=== PATIENT | male | born 1975 | race Caucasian/White ===

== ENCOUNTER → 2019-09-09 | Outpatient (CLI) | payer OTHER ==
--- NOTE | 2019-09-10 07:37 | US ---
EXAMINATION TYPE: US thyroid st tissue head/neck DATE OF EXAM: 09/09/2019 COMPARISON: NONE CLINICAL HISTORY: R22.1 Localized swelling, mass and lump, neck. Patient states having left neck swel ling. Patient states he has been on 3 different antibiotics but has gone down. TECHNIQUE: Targeted grayscale and color ultrasound were performed of the left neck with Limited right neck images taken for comparison. Area of concern at left neck scanned. Multiple lymph nodes seen. Largest measured. 1: 2.3 x 1.0 x 0.9 cm 2: 2.3 x 1.3 x 1.2 cm The lymph nodes of the left neck that are imaged display cortical thickening up to 9 mm. Contralateral images taken. No adenopathy is seen within the right neck. IMPRESSION: Abnormal left neck adenopathy with lymph nodes displaying cortical thickening and enlarg ed. Adenopathy may be reactive or neoplastic. In the setting of recent infection repeat ultrasound co uld be performed in 4-6 weeks to ensure decreasing size of the lymph nodes. However if there is no cl inical recent infection ultrasound guided biopsy would be recommended for the abnormal adenopathy wit h flow cytometry to exclude lymphoma.
== END | disposition home or self-care (01) ==
LOC: RADUSWWP 16:45
PROVIDERS: ATTEND Family Medicine
DX: R59.0 Localized enlarged lymph nodes (principal)
CPT/HCPCS: 76536

== ENCOUNTER 2022-01-18 19:36 | Emergency (ER) | payer OTHER ==
[2022-01-18 20:47] VITALS: RESP 16; TEMP 98.6
[2022-01-18] MEDS ORDERED: HYDROmorphone 1 MG/ML 1 ML SYRINGE IVP STA (21:10)
[2022-01-18] MEDS ORDERED: SODIUM CHLORIDE 0.9% 1,000 ML IV STA (21:10)
[2022-01-18] MEDS ORDERED: ONDANSETRON 4 MG/2 ML VIAL IVP STA (21:10)
--- NOTE | 2022-01-18 21:14 | ED ---
General Adult HPI - General Chief complaint: Urogenital Stated complaint: Kidney Stone Time Seen by Provider: 01/18/22 20:57 Source: patient, RN notes reviewed Mode of arrival: ambulatory Limitations: no limitations - History of Present Illness Initial comments: 46-year-old male presents to the emergency department for evaluation of left flank pain. Patient states he was diagnosed with a kidney stone earlier today at [facility] in [place]. States he was unable to be admitted there due to a lack of urology services therefore was transferred to [facility] but waited in the ED waiting room for several hours before leaving. [facility] he is here for pain control and hoping to be admitted at this facility. States he was given an antibiotic prior to departure for UTI. Denies fever, chills, chest pain, shortness of breath, appetite changes, diarrhea, constipation, or lower extremity edema. - Related Data Home Medications Medication Instructions Recorded Confirmed Buprenorphine/Naloxone 8Mg/2Mg 2 film SL DAILY 01/18/22 01/18/22 [Suboxone 8-2Mg Film] Ferrous Sulfate [Feosol] 325 mg PO DAILY 01/18/22 01/18/22 Previous Rx's Medication Instructions Recorded Ciprofloxacin HCl [Cipro] 500 mg PO Q12HR #20 tablet 01/19/22 Ketorolac [Toradol] 10 mg PO Q8HR #15 tab 01/19/22 Ondansetron Odt [Zofran Odt] 4 mg PO Q8HR PRN #10 tab 01/19/22 Tamsulosin [Flomax] 0.4 mg PO DAILY #7 cap 01/19/22 Allergies Allergy/AdvReac Type Severity Reaction Status Date / Time Beef Containing Products Allergy Unknown Verified 01/18/22 22:26 [Beef] Review of Systems ROS Statement: Those systems with pertinent positive or pertinent negative responses have been documented in the HPI. ROS Other: All systems not noted in ROS Statement are negative. Past Medical History Additional Past Medical History / Comment(s): kindey stones. Chrons Dx. History of Any Multi-Drug Resistant Organisms: None Reported Past Surgical History: Appendectomy Additional Past Surgical History / Comment(s): lithotripsy. Kidney stent. 2 feet of intestine removed Past Psychological History: No Psychological Hx Reported Smoking Status: Current some day smoker Past Alcohol Use History: Occasional Past Drug Use History: Marijuana General Exam Limitations: no limitations (Well-developed, well-nourished male in moderate distress. Initial temperature 98.6, pulse 90, respirations 16, blood pressure 123/71, pulse ox 98% on room air.) General appearance: alert, other Eye exam: Present: normal appearance. Absent: scleral icterus, conjunctival injection, periorbital swelling, periorbital tenderness ENT exam: Present: normal exam, normal oropharynx, mucous membranes moist Respiratory exam: Present: normal lung sounds bilaterally. Absent: respiratory distress, wheezes, rales, rhonchi, stridor, chest wall tenderness Cardiovascular Exam: Present: regular rate, normal rhythm, normal heart sounds. Absent: systolic murmur, diastolic murmur, rubs, gallop, clicks GI/Abdominal exam: Present: soft, normal bowel sounds. Absent: distended, tenderness, guarding, rebound, rigid exam: Present: other (Urine is very dark yellow in appearance; able to empty bladder without difficulty.) Extremities exam: Present: normal inspection Back exam: Present: CVA tenderness (L). Absent: CVA tenderness (R) Neurological exam: Present: alert, oriented X3, CN II-XII intact, normal gait Psychiatric exam: Present: normal affect, normal mood Skin exam: Present: warm, dry, intact, normal color. Absent: rash Course Vital Signs 01/18/22 01/18/22 01/19/22 20:41 23:20 01:43 Temperature 98.6 F Pulse Rate 90 78 74 Respiratory 16 16 16 Rate Blood Pressure 123/71 123/78 107/75 O2 Sat by Pulse 98 98 98 Oximetry - Reevaluation(s) Reevaluation #1: 01/18/22 22:41 [address] records from [facility]. 01/19/22 01:40 Upon reassessment, patient is resting more comfortably than on upon initial presentation, however does complain of return of left-sided pain and is requesting an additional dose of pain medication. Records from [facility] were obtained and reviewed. Medical Decision Making - Medical Decision Making This is a 46-year-old male with a past medical history of kidney stones and colitis who presents to the emergency department for evaluation of left lower abdominal pain due to known renal calculus as diagnosed at previous facility. Upon exam, patient is restless but in no acute distress. He does have mild left flank/CVA tenderness upon palpation. Urine is dark yellow appearance, but no issues with retention. Vital signs are stable. Report was reviewed from [facility] showing presence of 7 x 5 mm elongated stone within the proximal left ureter just beyond the UPJ contributing to mild to moderate obstructive uropathy. He also had a nitrite positive UTI for which he was given Rocephin. Urinalysis here shows large amount of blood, urine RBCs, and a few urine WBCs. Patient was given Dilaudid for pain control and was significantly improved. Patient would prefer hospital admission for ongoing IV pain medication however he has resting comfortably, able to urinate, and tolerating oral intake without difficulty therefore he will be discharged home to follow up with urology on an outpatient basis. Patient is prescribed Cipro for UTI, Flomax, Toradol, and Zofran. Return parameters were discussed in detail. Patient verbalizes understanding and agrees with this plan. Attending: Janine. - Lab Data Result diagrams: 01/18/22 21:40 01/18/22 21:40 Lab Results 01/18/22 01/18/22 01/18/22 Range/Units 21:40 21:40 21:40 WBC 8.7 (3.8-10.6) k/uL RBC 4.69 (4.30-5.90) m/uL Hgb 12.3 L (13.0-17.5) gm/dL Hct 40.1 (39.0-53.0) % MCV 85.3 (80.0-100.0) fL MCH 26.3 (25.0-35.0) pg MCHC 30.8 L (31.0-37.0) g/dL RDW 13.4 (11.5-15.5) % Plt Count 261 (150-450) k/uL MPV 7.7 Neutrophils % 59 % Lymphocytes % 30 % Monocytes % 6 % Eosinophils % 3 % Basophils % 1 % Neutrophils # 5.1 (1.3-7.7) k/uL Lymphocytes # 2.7 (1.0-4.8) k/uL Monocytes # 0.5 (0-1.0) k/uL Eosinophils # 0.2 (0-0.7) k/uL Basophils # 0.1 (0-0.2) k/uL Sodium 139 (137-145) mmol/L Potassium 3.7 (3.5-5.1) mmol/L Chloride 107 (98-107) mmol/L Carbon Dioxide 25 (22-30) mmol/L Anion Gap 7 mmol/L BUN 17 (9-20) mg/dL Creatinine 1.02 (0.66-1.25) mg/dL Est GFR (CKD-EPI)AfAm >90 (>60 ml/min/1.73 sqM) Est GFR (CKD-EPI)NonAf 89 (>60 ml/min/1.73 sqM) Glucose 118 H (74-99) mg/dL Calcium 8.8 (8.4-10.2) mg/dL Total Bilirubin 0.4 (0.2-1.3) mg/dL AST 19 (17-59) U/L ALT 11 (4-49) U/L Alkaline Phosphatase 34 L (38-126) U/L Total Protein 6.4 (6.3-8.2) g/dL Albumin 3.8 (3.5-5.0) g/dL Urine Color Yellow Urine Appearance Cloudy (Clear) Urine pH 5.5 (5.0-8.0) Ur Specific Kendall 1.024 (1.001-1.035) Urine Protein 1+ H (Negative) Urine Glucose (UA) Negative (Negative) Urine Ketones Negative (Negative) Urine Blood Large H (Negative) Urine Nitrite Negative (Negative) Urine Bilirubin Negative (Negative) Urine Urobilinogen <2.0 (<2.0) mg/dL Ur Leukocyte Esterase Small H (Negative) Urine RBC 142 H (0-5) /hpf Urine WBC 17 H (0-5) /hpf Ur Squamous Epith Cells <1 (0-4) /hpf Urine Mucus Few H (None) /hpf Disposition Clinical Impression: Renal calculus, UTI (urinary tract infection) Disposition: HOME SELF-CARE Condition: Stable Instructions (If sedation given, give patient instructions): Kidney Stones (ED) Additional Instructions: Take Toradol if needed for pain. Zofran is for nausea. A 7-day course of Flomax is being prescribed as discussed. Cipro is to treat your urinary tract infection. Please call the urologist the morning to schedule a follow-up appointment. Return to the emergency department with any new, worsening, or concerning symptoms. Prescriptions: Ciprofloxacin HCl [Cipro] 500 mg PO Q12HR #20 tablet Tamsulosin [Flomax] 0.4 mg PO DAILY #7 cap Ketorolac [Toradol] 10 mg PO Q8HR #15 tab Ondansetron Odt [Zofran Odt] 4 mg PO Q8HR PRN #10 tab PRN Reason: Nausea Is patient prescribed a controlled substance at d/c from ED?: No Referrals: Yeny Pulliam MD [Primary Care Provider] - 1-2 days Dax Blackwell MD [STAFF PHYSICIAN] - 1-2 days Time of Disposition: 02:58
[2022-01-18 22:02] LABS: Basophils # (A) 0.1 k/uL (0-0.2); Basophils % (A) 1 %; Eosinophils # (A) 0.2 k/uL (0-0.7); Eosinophils % (A) 3 %; HCT 40.1 % (39.0-53.0); HGB 12.3 gm/dL (13.0-17.5); Lymphocytes # (A) 2.7 k/uL (1.0-4.8); Lymphocytes % (A) 30 %; MCH 26.3 pg (25.0-35.0); MCHC 30.8 g/dL (31.0-37.0); MCV 85.3 fL (80.0-100.0); Mean Platelet Volume 7.7; Monocytes # (A) 0.5 k/uL (0-1.0); Monocytes % (A) 6 %; Neutrophils # (A) 5.1 k/uL (1.3-7.7); Neutrophils % (A) 59 %; Platelet Count 261 k/uL (150-450); RBC 4.69 m/uL (4.30-5.90); RDW 13.4 % (11.5-15.5); WBC 8.7 k/uL (3.8-10.6)
[2022-01-18 22:10] LABS: Appearance,Urine Cloudy (Clear); Bilirubin,Urine Negative (Negative); Blood,Urine Large (Negative); Color,Urine Yellow; Glucose,Urine (UA) Negative (Negative); Ketones,Urine Negative (Negative); Leukocyte Esterase,Urine Small (Negative); Mucus,Urine Few /hpf; Nitrite,Urine Negative (Negative); PH, Urine 5.5 (5.0-8.0); Protein,Urine 1+ (Negative); RBC,Urine 142 /hpf (0-5); Specific Gravity,Urine 1.024 (1.001-1.035); Squamous Epithelial Cell,Urine <1 /hpf (0-4); Urobilinogen,Urine <2.0 mg/dL (<2.0); WBC,Urine 17 /hpf (0-5)
[2022-01-18 22:31] LABS: ALT 11 U/L (4-49); AST 19 U/L (17-59); African American GFR (CKD) >90 (>60 ml/min/1.73 sqM); Albumin 3.8 g/dL (3.5-5.0); Alkaline Phosphatase 34 U/L (38-126); Anion Gap 7 mmol/L; Blood Urea Nitrogen 17 mg/dL (9-20); Calcium 8.8 mg/dL (8.4-10.2); Carbon Dioxide 25 mmol/L (22-30); Chloride 107 mmol/L (98-107); Glucose 118 mg/dL (74-99); Non-African American GFR(CKD) 89 (>60 ml/min/1.73 sqM); Potassium 3.7 mmol/L (3.5-5.1); Sodium 139 mmol/L (137-145); Total Bilirubin 0.4 mg/dL (0.2-1.3); Total Protein 6.4 g/dL (6.3-8.2)
[2022-01-19] MEDS ORDERED: HYDROmorphone 0.5 MG/0.5 ML SYRINGE IVP STA (01:40)
[2022-01-19 01:44] VITALS: BP 107/75; PULSE 74
[2022-01-19] MEDS ORDERED: ACET/COD 300 MG/30 MG STARTER PACK 6 TAB BTL PO STA (02:52)
[2022-01-19] MEDS ORDERED: ONDANSETRON 4 MG ODT STARTER PACK 2 TAB BTL PO STA (02:52)
== END 2022-01-19 03:11 | disposition home or self-care (01) ==
LOC: EC 19:36
DX: N20.0 Calculus of kidney (principal); N39.0 Urinary tract infection, site not specified; F17.200 Nicotine dependence, unspecified, uncomplicated; F12.90 Cannabis use, unspecified, uncomplicated; Z79.899 Other long term (current) drug therapy
CPT/HCPCS: 36415; 80053; 85025; 81001; 87086; 99284; 96374; 96375; 96376; 96361; J2405; J1170 ×2; S0119

== ENCOUNTER → 2022-01-20 | Outpatient (CLI) | payer OTHER ==
--- NOTE | 2022-01-20 11:17 | XR ---
EXAMINATION TYPE: XR KUB DATE OF EXAM: 01/20/2022 COMPARISON: NONE HISTORY: Pain TECHNIQUE: One view abdominal series FINDINGS: The osseous structures are intact. The bowel gas pattern is nonspecific. 5 mm right renal calculus n oted. Calcifications in left hemipelvis likely vascular nonspecific. Bone island overlying the femora l head. Arthropathy of the hips. Surgical changes right lower quadrant.. IMPRESSION: 1. Right lower pole renal calculus..
== END | disposition home or self-care (01) ==
LOC: RADXRMAIN 10:05
PROVIDERS: ATTEND Urology
DX: N20.0 Calculus of kidney (principal)
CPT/HCPCS: 74018

== ENCOUNTER 2022-01-26 13:19 | Day surgery (SDC) | payer OTHER ==
[2022-01-24 18:45] VITALS: BMI 25.0
[~2022-01-26 13:19] MED LIST: DEXAMETHASONE SOD PHOSPHATE 4 MG/ML 1 ML VIAL IV ONE; HYDROmorphone 0.5 MG/0.5 ML SYRINGE IVP PRN; LACTATED RINGERS 1,000 ML IV SCH; ONDANSETRON 4 MG/2 ML VIAL IVP ONE
--- NOTE | 2022-01-26 13:59 | XR ---
KUB HISTORY: Bilateral ureteral stones, preop Frontal KUB submitted and correlated prior KUB 01/20/2022 Overlying bowel gas may obscure detail. Calcifications superimposed over the lower pole the right kid robe are partially obscured but thought to be stable. Calcifications in the left hemipelvis are unchan ged and may represent phleboliths. Postop changes are noted to the bowel in the right hemiabdomen. Doroteo jia are intact and stable. IMPRESSION: Stable findings. Right-sided nephrolithiasis. Postop changes.
[2022-01-26] MEDS ORDERED: SUCCINYLCHOLINE CHLORIDE 100 MG/5 ML SYR IV ONE (16:16)
[2022-01-26] MEDS ORDERED: HYDROmorphone (PF) 1 MG/ML ONE (16:16)
[2022-01-26] MEDS ORDERED: MIDAZOLAM 2 MG/2 ML VIAL ONE (16:16)
[2022-01-26] MEDS ORDERED: LIDOCAINE 2% INJ 20 MG/ML (2 ML VIAL) ONE (16:16)
[2022-01-26] MEDS ORDERED: fentaNYL (PF) 50 MCG/ML 2 ML AMP ONE (16:16)
[2022-01-26] MEDS ORDERED: IOPAMIDOL-370 50ML BTL IRRIGATION ONE (16:42)
--- NOTE | 2022-01-26 17:48 | P.HPIHPCON ---
History of Present Illness H&P Date: 01/26/22 Chief Complaint: Left ureteral, right renal stone This is a 46-year-old male with history of a 7 mm left-sided proximal stone, and a 1.2 cm right-sided lower pole stone. He is symptomatic secondary to her stone. Discussed the option of ESWL versus ureteroscopy. Discussed the risk and the benefit of each approach. He agreed to proceed with bilateral ureteroscopy with holmium laser. Discussed the risk which includes but not limited to bleeding, infection, injury to the ureter. Discussed also risk from anesthesia. Him to chew all the risk and agreed to proceed Consent for Procedure: I have explained the operation/procedure to the patient, including the risks, benefits, side effects, alternative therapies (including not receiving the proposed treatment or service), the likelihood of the patient achieving his/her goals, and potential recuperation problems for the procedure/sedation/analgesia, as well as any blood products, if indicated. I also explained to the patient the risks, benefits and side effects of the alternatives, as well as the risks related to not receiving the proposed procedure, care, treatment, or services. Past Medical History Past Medical History: Asthma Additional Past Medical History / Comment(s): Asthma as a child. Crohns. Hx kindey stones. History of Any Multi-Drug Resistant Organisms: None Reported Past Surgical History: Appendectomy, Bowel Resection Additional Past Surgical History / Comment(s): lithotripsy. Kidney stent. 2 feet of intestine removed Past Anesthesia/Blood Transfusion Reactions: No Reported Reaction Smoking Status: Current some day smoker - Past Family History Father Family Medical History: Cancer Additional Family Medical History / Comment(s): lung cancer Medications and Allergies Home Medications Medication Instructions Recorded Confirmed Type Buprenorphine/Naloxone 8Mg/2Mg 1 film SL BID 01/18/22 01/26/22 History [Suboxone 8-2Mg Film] Ferrous Sulfate [Feosol] 325 mg PO DAILY 01/18/22 01/26/22 History Ciprofloxacin HCl [Cipro] 500 mg PO Q12HR #20 tablet 01/19/22 01/26/22 Rx Ketorolac [Toradol] 10 mg PO Q8HR #15 tab 01/19/22 01/26/22 Rx Ondansetron Odt [Zofran Odt] 4 mg PO Q8HR PRN #10 tab 01/19/22 01/26/22 Rx Tamsulosin [Flomax] 0.4 mg PO DAILY #7 cap 01/19/22 01/26/22 Rx Loperamide [Imodium] 2 mg PO QID PRN 01/24/22 01/26/22 History Allergies Allergy/AdvReac Type Severity Reaction Status Date / Time Beef Containing Products Allergy bowel Verified 01/26/22 14:13 [Beef] obstruction soy AdvReac inflammation, Verified 01/26/22 14:13 gas, diarrhea Surgical - Exam Vital Signs Temp Pulse Resp BP Pulse Ox 97.7 F 69 18 119/71 98 01/26/22 13:57 01/26/22 13:57 01/26/22 13:57 01/26/22 13:57 01/26/22 13:57 - General no distress, moderate pain - ENT normal nares, normal mucosa - Respiratory normal expansion, normal respiratory effort - Abdomen Abdomen: soft, non tender Assessment and Plan Assessment: OR for bilateral ureteroscopy, with holmium laser lithotripsy, stone basketing and stent insertion
[2022-01-26 17:51] VITALS: TEMP 97.9
--- NOTE | 2022-01-26 17:56 | P.OP ---
Date of Procedure: 01/26/22 Preoperative Diagnosis: Left ureteral stone, right renal stone Postoperative Diagnosis: Same Procedure(s) Performed: Cystoscopy, bilateral ureteroscopy, holmium laser lithotripsy, stone basketing, and right stent insertion, left retrograde pyelogram Implants: 6-Czech by 26 cm stent left on a string and taped to the patient penis in the right ureter Anesthesia: JANINE Surgeon: Virgil Whitley Estimated Blood Loss (ml): 5 Pathology: other (Bilateral kidney stones) Condition: stable Disposition: PACU Indications for Procedure: this is a 60-year-old female with history of a 1 cm left-sided distal ureteral stone, she is symptomatic from her stone. Discussed with her the option of ureteroscopy versus ESWL. She agreed to proceed with a left-sided ureteroscopy with holmium laser. Discussed the risk which includes but not limited to bleeding, infection, injury to the ureter. Discussed also risk from anesthesia. She understood all the risk and agreed to proceed Operative Findings: Large left-sided proximal ureteral stone, right-sided lower pole stone Description of Procedure: Patient brought to the operating room, general anesthesia was induced. He was prepped and draped in sterile fashion and placed in dorsal lithotomy position. Cystoscopy fitted with a 21-Czech sheath was inserted per urethra, cystoscopy was performed which showed no abnormality within the bladder. Attention was t hen carried to the left ureteral orifice which was intubated with an open-ended catheter, retrograde pyelogram was performed on the left side which showed no filling defect along the course of the ureter, there was a filling defect at the UPJ consistent at the level of the stone. At this time a sensor wire was advanced through the catheter and the catheter was removed with the wire in place. Next under fluoroscopy 1113 Czech access sheath was passed over the wire into the proximal ureter. Next a flexible ureteroscope was inserted through the access sheath, renoscopy was performed which showed a large stone within the renal pelvis. Using the holmium laser the stone was dusted, sizable fragments were removed using the stone basket. Repeat renoscopy showed no sizable fragments or injury to the kidney. Pullback ureteroscopy was performed which showed no injury to the ureter or any ureteral fragments. There was no ureteral edema, thus stent was not placed. At this time the cystoscope was reinserted and attention was carried to the right ureteral orifice was intubated with a sensor wire. Next a 1113 Czech access sheath was passed over the wire into the proximal ureter, under fluoroscopy. Next the flexible ureteroscope was inserted through the access sheath, renoscopy was performed which showed a large stone in the lower pole. Using the holmium laser the stone was dusted, sizable fragments were removed using the stone basket. Repeat renoscopy showed no sizable fragments or injury to the kidney, there was no radiopaque densities seen on x-ray. At this time pullback ureteroscopy was performed which showed no injury to the ureter or any ureteral fragments. As ureteroscope was withdrawn a sensor wire was advanced through. Next a ureteral stent was passed over the wire, the proximal curl was visualized on fluoroscopy and distal curl was visualized using the cystoscope. The stent was left on a string and taped to the patient penis. The bladder was emptied at the end of the case. Patient tolerated procedure well was taken to recovery in stable condition
[2022-01-26 18:26] VITALS: RESP 16
[2022-01-26 19:00] VITALS: BP 156/98; PULSE 66
--- NOTE | 2022-01-27 09:41 | FL ---
Fluoroscopy HISTORY: Lithotripsy and cystoscopy 36 seconds fluoroscopy time supplied to the referring clinician. 5 intraoperative C-arm images docum ent the procedure. See dictated report from urology.
== END 2022-01-26 19:30 | disposition home or self-care (01) ==
LOC: OR 13:19
PROVIDERS: ATTEND Urology
DX: N20.2 Calculus of kidney with calculus of ureter (principal); K50.90 Crohn's disease, unspecified, without complications; Z87.442 Personal history of urinary calculi; Z90.49 Acquired absence of other specified parts of digestive tract; F17.200 Nicotine dependence, unspecified, uncomplicated; Z80.1 Family history of malignant neoplasm of trachea, bronchus and lung; Z79.891 Long term (current) use of opiate analgesic; Z79.899 Other long term (current) drug therapy; Z91.018 Allergy to other foods
CPT/HCPCS: 52356; 82365; 74420; 74018; C2625; C1758; C1769; J2250; J1100; J0690; J2405; J3010; J1170 ×2; J0330; Q9967; J2001

== ENCOUNTER 2022-11-10 07:57 | Observation (INO) | payer OTHER ==
[2022-11-10] MEDS ORDERED: SODIUM CHLORIDE 0.9% 1,000 ML IV STA (08:06)
[2022-11-10] MEDS ORDERED: DILTIAZEM DRIP BOLUS FROM BAG 1 MG SOLN IV ONE (08:18)
[2022-11-10 08:27] LABS: Basophils % (A) 0 %; Eosinophils # (A) 0.1 k/uL (0-0.7); Eosinophils % (A) 1 %; HCT 48.5 % (39.0-53.0); Lymphocytes # (A) 2.5 k/uL (1.0-4.8); Lymphocytes % (A) 25 %; MCH 28.3 pg (25.0-35.0); MCHC 32.9 g/dL (31.0-37.0); Mean Platelet Volume 7.6; Monocytes # (A) 0.5 k/uL (0-1.0); Monocytes % (A) 5 %; Neutrophils % (A) 68 %; Platelet Count 246 k/uL (150-450); RBC 5.64 m/uL (4.30-5.90); WBC 10.3 k/uL (3.8-10.6)
--- NOTE | 2022-11-10 08:38 | XR ---
EXAMINATION TYPE: XR chest 2V DATE OF EXAM: 11/10/2022 COMPARISON: NONE HISTORY: Dysrhythmia. TECHNIQUE: Frontal and lateral views of the chest are obtained. FINDINGS: There is no focal air space opacity, pleural effusion, or pneumothorax seen. The cardiac silhouette size is within normal limits. The osseous structures are intact. Overlying EKG leads are present. IMPRESSION: No acute cardiopulmonary process.
[2022-11-10 08:40] LABS: ALT 16 U/L (4-49); AST 26 U/L (17-59); African American GFR (CKD) >90 (>60 ml/min/1.73 sqM); Albumin 4.1 g/dL (3.5-5.0); Alkaline Phosphatase 49 U/L (38-126); Anion Gap 12 mmol/L; Blood Urea Nitrogen 15 mg/dL (9-20); Calcium 9.2 mg/dL (8.4-10.2); Carbon Dioxide 22 mmol/L (22-30); Chloride 104 mmol/L (98-107); Glucose 94 mg/dL (74-99); Magnesium 1.7 mg/dL (1.6-2.3); Non-African American GFR(CKD) >90 (>60 ml/min/1.73 sqM); Partial Thromboplastin Time 22.8 sec (22.0-30.0); Potassium 3.5 mmol/L (3.5-5.1); Prothrombin Time 10.6 sec (9.0-12.0); Sodium 138 mmol/L (137-145); Total Bilirubin 1.1 mg/dL (0.2-1.3); Total Protein 6.6 g/dL (6.3-8.2)
[2022-11-10] MEDS: DILTIAZEM 125 MG in SODIUM CHLORIDE 0.9% 100 ML IV SCH (08:53)
--- NOTE | 2022-11-10 08:57 | ED ---
General Adult HPI - General Chief complaint: Anxiety Stated complaint: Anxiety Time Seen by Provider: 11/10/22 08:00 Source: patient, RN notes reviewed Mode of arrival: ambulatory Limitations: no limitations - History of Present Illness Initial comments: 46-year-old male presents emergency Department with chief complaint of palpitations. Patient states he was at work he states his work was harassing him about possibly using marijuana. Patient states he started his work today states he is doing some activities states he became feeling more anxious noted that his heart was racing. Patient states he has no history of cardiac issues he states he does have a history of Crohn's, kidney stones, anxiety. Patient did have some discomfort when he felt like his heart was racing. He denies any fevers chills no cough or cold like symptoms. - Related Data Home Medications Medication Instructions Recorded Confirmed Buprenorphine/Naloxone 8Mg/2Mg 1 film SL BID 01/18/22 09/28/22 [Suboxone 8-2Mg Film] Ferrous Sulfate [Feosol] 325 mg PO DAILY 01/18/22 09/28/22 Loperamide [Imodium] 2 mg PO QID PRN 01/24/22 09/28/22 oxyCODONE-APAP 7.5-325MG [Percocet 0.5 tab PO DIRECTED PRN 09/28/22 09/28/22 7.5-325 mg] Ketorolac [Toradol] 10 mg PO Q6HR 09/29/22 09/29/22 Previous Rx's Medication Instructions Recorded Tamsulosin [Flomax] 0.4 mg PO DAILY #7 cap 01/19/22 Cephalexin [Keflex] 500 mg PO Q6HR 1 Days #4 cap 09/29/22 Ketorolac [Toradol] 10 mg PO Q6HR PRN #10 tab 09/29/22 Tamsulosin [Flomax] 0.4 mg PO DAILY #14 cap 09/29/22 Allergies Allergy/AdvReac Type Severity Reaction Status Date / Time Beef Containing Products Allergy bowel Verified 11/10/22 08:07 [Beef] obstruction soy AdvReac inflammation, Verified 11/10/22 08:07 gas, diarrhea Review of Systems ROS Statement: Those systems with pertinent positive or pertinent negative responses have been documented in the HPI. ROS Other: All systems not noted in ROS Statement are negative. Past Medical History Past Medical History: Asthma Additional Past Medical History / Comment(s): Asthma as a child. Crohns. Hx kidn ey stones.-seen recently @[facility] for History of Any Multi-Drug Resistant Organisms: None Reported Past Surgical History: Appendectomy, Bowel Resection Additional Past Surgical History / Comment(s): lithotripsy. Kidney stent. 2 feet of intestine removed Past Anesthesia/Blood Transfusion Reactions: No Reported Reaction Past Psychological History: Anxiety, Depression Smoking Status: Current some day smoker Past Alcohol Use History: Occasional Past Drug Use History: Cocaine, Marijuana - Past Family History Father Family Medical History: Cancer Additional Family Medical History / Comment(s): lung cancer General Exam Limitations: no limitations General appearance: alert, in no apparent distress Head exam: Present: atraumatic, normocephalic, normal inspection Eye exam: Present: normal appearance, PERRL, EOMI. Absent: scleral icterus, conjunctival injection, periorbital swelling ENT exam: Present: normal exam, normal oropharynx, mucous membranes moist Neck exam: Present: normal inspection, full ROM. Absent: tenderness, meningismus, lymphadenopathy Respiratory exam: Present: normal lung sounds bilaterally. Absent: respiratory distress, wheezes, rales, rhonchi, stridor Cardiovascular Exam: Present: tachycardia, irregular rhythm, normal heart sounds. Absent: normal rhythm, systolic murmur, diastolic murmur, rubs, gallop, clicks GI/Abdominal exam: Present: soft, normal bowel sounds. 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 fib with RVR rate of 145 QRS 94 QT/QTC 301/385 - EKG Results: EKG: interpreted by LALITOD Medical Decision Making - Medical Decision Making Was pt. sent in by a medical professional or institution (, PA, DYE TANK TENDER, urgent care, hospital, or [facility]...) When possible be specific @ -No Did you speak to anyone other than the patient for history (EMS, parent, family, police, friend...)? What history was obtained from this source @ -No Did you review nursing and triage notes (agree or disagree)? Why? @ -I reviewed and agree with nursing and triage notes Were old charts reviewed (outside hosp., previous admission, EMS record, old EKG, old radiological studies, urgent care reports/EKG's, [facility] records)? Report findings @ -No old charts were reviewed Differential Diagnosis (chest pain, altered mental status, abdominal pain women, abdominal pain men, vaginal bleeding, weakness, fever, dyspnea, syncope, headache, dizziness, GI bleed, back pain, seizure, CVA, palpatations, mental health, musculoskeletal)? @ -Differential Palpitations Ventricular arrhythmias, atrial arrhythmias, myocardial infarction, anemia, thyrotoxicosis, electrolyte imbalance, hypokalemia, pulmonary embolism, pulmonary disease, drugs, alcohol, anxiety, stress.... This is not meant to be an all-inclusive list. EKG interpreted by me (3pts min.). @ -As above X-rays interpreted by me (1pt min.). @ -Chest x-ray shows no acute process CT interpreted by me (1pt min.). @ -None done U/S interpreted by me (1pt. min.). @ -None done What testing was considered but not performed or refused? (CT, X-rays, U/S, labs)? Why? @ -None What meds were considered but not given or refused? Why? @ -None Did you discuss the management of the patient with other professionals (professionals i.e. , ROSS, DYE TANK TENDER, lab, RT, psych nurse, social professionals, letterer, teacher, career services officer, lining caser)? Give summary @ -No Was smoking cessation discussed for >3mins.? @ -No Was critical care preformed (if so, how long)? @ -yes 35 minutes Were there social determinants of health that impacted care today? How? (Homelessness, low income, unemployed, alcoholism, drug addiction, transportation, low edu. Level, literacy, decrease access to med. care, fci, rehab)? @ -No Was there de-escalation of care discussed even if they declined (Discuss DNR or withdrawal of care, Hospice)? DNR status @ -No What co-morbidities impacted this encounter? (DM, HTN, Smoking, COPD, CAD, Cancer, CVA, ARF, Chemo, Hep., AIDS, mental health diagnosis, sleep apnea, mo rbid obesity)? @ -Crohn's disease, anxiety Was patient admitted / discharged? Hospital course, mention meds given and route, prescriptions, significant lab abnormalities, going to OR and other pertinent info. @ -Admitted patient has new-onset atrial fibrillation patient presented in A. fib RVR with a heart rate she 140-80. Patient was very symptomatic. Symptoms are improving at this time Cardizem was started. Patiently admitted for ech ocardiogram, cardiology evaluation. Undiagnosed new problem with uncertain prognosis? @ -No Drug Therapy requiring intensive monitoring for toxicity (Heparin, Nitro, Insulin, Cardizem)? @ -Cardizem Were any procedures done? @ -No Diagnosis/symptom? @ -New-onset atrial fibrillation fibrillation Acute, or Chronic, or Acute on Chronic? @ -Acute Uncomplicated (without systemic symptoms) or Complicated (systemic symptoms)? @ -Complicated Side effects of treatment? @ -No Exacerbation, Progression, or Severe Exacerbation? @ -No Poses a threat to life or bodily function? How? (Chest pain, [place], [place], pneumonia, PE, COPD, DKA, ARF, appy, cholecystitis, CVA, Diverticulitis, Homicidal, Suicidal, threat to staff... and all critical care pts) @ -No - Lab Data Result diagrams: 11/10/22 08:08 11/10/22 08:08 Lab Results 11/10/22 11/10/22 11/10/22 Range/Units 08:08 08:08 08:08 WBC 10.3 (3.8-10.6) k/uL RBC 5.64 (4.30-5.90) m/uL Hgb 16.0 (13.0-17.5) gm/dL Hct 48.5 (39.0-53.0) % MCV 86.0 (80.0-100.0) fL MCH 28.3 (25.0-35.0) pg MCHC 32.9 (31.0-37.0) g/dL RDW 13.0 (11.5-15.5) % Plt Count 246 (150-450) k/uL MPV 7.6 Neutrophils % 68 % Lymphocytes % 25 % Monocytes % 5 % Eosinophils % 1 % Basophils % 0 % Neutrophils # 7.0 (1.3-7.7) k/uL Lymphocytes # 2.5 (1.0-4.8) k/uL Monocytes # 0.5 (0-1.0) k/uL Eosinophils # 0.1 (0-0.7) k/uL Basophils # 0.0 (0-0.2) k/uL PT 10.6 (9.0-12.0) sec INR 1.0 (<1.2) APTT 22.8 (22.0-30.0) sec Sodium 138 (137-145) mmol/L Potassium 3.5 (3.5-5.1) mmol/L Chloride 104 (98-107) mmol/L Carbon Dioxide 22 (22-30) mmol/L Anion Gap 12 mmol/L BUN 15 (9-20) mg/dL Creatinine 0.84 (0.66-1.25) mg/dL Est GFR (CKD-EPI)AfAm >90 (>60 ml/min/1.73 sqM) Est GFR (CKD-EPI)NonAf >90 (>60 ml/min/1.73 sqM) Glucose 94 (74-99) mg/dL Calcium 9.2 (8.4-10.2) mg/dL Magnesium 1.7 (1.6-2.3) mg/dL Total Bilirubin 1.1 (0.2-1.3) mg/dL AST 26 (17-59) U/L ALT 16 (4-49) U/L Alkaline Phosphatase 49 (38-126) U/L Troponin I (0.000-0.034) ng/mL Total Protein 6.6 (6.3-8.2) g/dL Albumin 4.1 (3.5-5.0) g/dL TSH 1.050 (0.465-4.680) mIU/L 11/10/22 Range/Units 08:08 WBC (3.8-10.6) k/uL RBC (4.30-5.90) m/uL Hgb (13.0-17.5) gm/dL Hct (39.0-53.0) % MCV (80.0-100.0) fL MCH (25.0-35.0) pg MCHC (31.0-37.0) g/dL RDW (11.5-15.5) % Plt Count (150-450) k/uL MPV Neutrophils % % Lymphocytes % % Monocytes % % Eosinophils % % Basophils % % Neutrophils # (1.3-7.7) k/uL Lymphocytes # (1.0-4.8) k/uL Monocytes # (0-1.0) k/uL Eosinophils # (0-0.7) k/uL Basophils # (0-0.2) k/uL PT (9.0-12.0) sec INR (<1.2) APTT (22.0-30.0) sec Sodium (137-145) mmol/L Potassium (3.5-5.1) mmol/L Chloride (98-107) mmol/L Carbon Dioxide (22-30) mmol/L Anion Gap mmol/L BUN (9-20) mg/dL Creatinine (0.66-1.25) mg/dL Est GFR (CKD-EPI)AfAm (>60 ml/min/1.73 sqM) Est GFR (CKD-EPI)NonAf (>60 ml/min/1.73 sqM) Glucose (74-99) mg/dL Calcium (8.4-10.2) mg/dL Magnesium (1.6-2.3) mg/dL Total Bilirubin (0.2-1.3) mg/dL AST (17-59) U/L ALT (4-49) U/L Alkaline Phosphatase (38-126) U/L Troponin I <0.012 (0.000-0.034) ng/mL Total Protein (6.3-8.2) g/dL Albumin (3.5-5.0) g/dL TSH (0.465-4.680) mIU/L Disposition Clinical Impression: New onset a-fib, Atrial fibrillation with RVR Disposition: ADMITTED IP TO THIS HOSP Condition: Fair Referrals: None,Stated [Primary Care Provider] - 1-2 days Time of Disposition: 10:26
[2022-11-10] MEDS ORDERED: NITROGLYCERIN SL TABS 0.4 MG TAB SUBLINGUAL PRN (10:26)
[2022-11-10] MEDS ORDERED: LOPERAMIDE 2 MG CAP PO PRN (12:21)
[2022-11-10] MEDS ORDERED: PATIENT'S OWN (Buprenorphine/Naloxone 8mg/2mg 1 EACH Film) SUBLINGUAL SCH (12:30)
--- NOTE | 2022-11-10 13:18 | CA ---
Transthoracic Echo Report Name: Bobby Hawley Age: 46 Gender: M : 1975 Exam Date: 11/10/2022 11:24 Exam Location: [facility] Ht (in): 72 Wt (lb): 172 Ordering Physician: Osmany Mcpherson Attending/Referring Phys: [id number], [place] [employer] Treatment Operator Sharif Lawton [facility] Procedure CPT: Indications: afib Cardiac Hx: Technical Quality: Fair Contrast 1: Total Dose (mL): Contrast 2: Total Dose (mL): MEASUREMENTS (Male / Female) Normal Values 2D ECHO LV Diastolic Diameter PLAX 3.8 cm 4.2 - 5.9 / 3.9 - 5.3 cm LV Systolic Diameter PLAX 2.6 cm LV Fractional Shortening PLAX 32.1 % IVS Diastolic Thickness 1.7 cm 0.6 - 1.0 / 0.6 - 0.9 cm IVS Systolic Thickness 2.0 cm LVPW Diastolic Thickness 1.7 cm 0.6 - 1.0 / 0.6 - 0.9 cm LVPW Systolic Thickness 2.2 cm LV Relative Wall Thickness 0.9 RV Internal Dim ED PLAX 3.5 cm LVOT Diameter 2.5 cm LA Systolic Diameter LX 3.3 cm 3.0 - 4.0 / 2.7 - 3.8 cm LV Diastolic Volume MOD BP 84.3 cm??? 67 - 155 / 56 - 104 cm??? LV Systolic Volume MOD BP 35.5 cm??? 22 - 58 / 19 - 49 cm??? LV Ejection Fraction MOD BP 57.9 % >= 55 % LV Diastolic Volume MOD 4C 85.3 cm??? LV Systolic Volume MOD 4C 32.5 cm??? LV Ejection Fraction MOD 4C 61.9 % LV Stroke Volume MOD 4C 52.8 cm??? LV Diastolic Length 4C 8.1 cm LV Systolic Length 4C 6.9 cm LV Diastolic Volume MOD 2C 80.7 cm??? LV Systolic Volume MOD 2C 37.6 cm??? LV Ejection Fraction MOD 2C 53.4 % LV Stroke Volume MOD 2C 43.1 cm??? LV Diastolic Length 2C 8.4 cm LV Systolic Length 2C 7.2 cm Ascending Aorta Diameter 2.7 cm M-MODE Aortic Root Diameter MM 3.1 cm LA Systolic Diameter MM 3.6 cm LA Ao Ratio MM 1.2 MV E Point Septal Separation 0.7 cm AV Cusp Separation MM 1.9 cm DOPPLER AV Peak Velocity 80.9 cm/s AV Peak Gradient 2.6 mmHg MV Deceleration Pershing 296.2 cm/s??? Mitral E Point Velocity 68.8 cm/s Mitral A Point Velocity 42.0 cm/s Mitral E to A Ratio 1.6 MV Deceleration Time 232.2 ms MV E' Velocity 8.9 cm/s Mitral E to MV E' Ratio 7.7 TR Peak Velocity 219.8 cm/s TR Peak Gradient 19.3 mmHg Right Ventricular Systolic Press 27.3 mmHg PV Peak Velocity 68.9 cm/s PV Peak Gradient 1.9 mmHg FINDINGS Left Ventricle Left ventricular ejection fraction is estimated at 60-65 %. Mild concentric left ventricular hypertrophy. Grade 1 diastolic dysfunction. Right Ventricle Normal right ventricular size and function. RVSP-27 mm Hg. Right Atrium Normal right atrial size. Left Atrium Normal left atrial size. Mitral Valve Structurally normal mitral valve. Trace mitral regurgitation. Aortic Valve Trileaflet aortic valve. No aortic stenosis. No aortic regurgitation. Tricuspid Valve Mild tricuspid regurgitation. Pulmonic Valve Structurally normal pulmonic valve. Pericardium Normal pericardium. No pericardial effusion. Aorta Normal size aortic root and proximal ascending aorta. CONCLUSIONS Left ventricular ejection fraction 60-65% Mild increased left ventricular wall thickness RVSP 27 Trace mitral regurgitation Mild tricuspid regurgitation Previewed by: Dr. Sixto Stark DO (Electronically Signed) Final Date: 10 November 2022 13:17
--- NOTE | 2022-11-10 17:38 | P.HPIM ---
History of Present Illness H&P Date: 11/10/22 Chief Complaint: Anxiety/palpitations 46-year-old male presents emergency Department with chief complaint of palpitations. Patient states he was at work he states his work was harassing him about possibly using marijuana. Patient states he started his work today states he is doing some activities states he became feeling more anxious noted that his heart was racing. Patient states he has no history of cardiac issues he states he does have a history of Crohn's, kidney stones, anxiety. Patient did have some discomfort when he felt like his heart was racing. He denies any fevers chills no cough or cold like symptoms. While in ED patient did report some depression and suicidal ideation EKG reveals atrial fibrillation with RVR, heart rate of 145 Chest exit of the lesions no acute process Blood work reveals WBC of 10.3, hemoglobin of 16 and platelet count of 246, sodium 138, potassium 3.5, BUN/creatinine of 15/0.8 - Patient was placed on IV Cardizem infusion and is admitted for further cardiac evaluation Review of Systems REVIEW OF SYSTEMS: CONSTITUTIONAL: No fever, no malaise, no fatigue. HEENT: No recent visual problems or hearing problems. Denied any sore throat. CARDIOVASCULAR: No chest pain, orthopnea, PND, complaints of palpitations, no syncope. PULMONARY: No shortness of breath, no cough, no hemoptysis. GASTROINTESTINAL: No diarrhea, no nausea, no vomiting, no abdominal pain. NEUROLOGICAL: No headaches, no weakness, no numbness. HEMATOLOGICAL: Denies any bleeding or petechiae. GENITOURINARY: Denies any burning micturition, frequency, or urgency. MUSCULOSKELETAL/RHEUMATOLOGICAL: Denies any joint pain, swelling, or any muscle pain. ENDOCRINE: Denies any polyuria or polydipsia. The rest of the 14-point review of systems is negative. Past Medical History Past Medical History: Asthma Additional Past Medical History / Comment(s): Asthma as a child. Crohns. Hx kid robe stones.-seen recently @[facility] for History of Any Multi-Drug Resistant Organisms: None Reported Past Surgical History: Appendectomy, Bowel Resection Additional Past Surgical History / Comment(s): lithotripsy. Kidney stent. 2 feet of intestine removed Past Anesthesia/Blood Transfusion Reactions: No Reported Reaction Past Psychological History: Anxiety, Depression Smoking Status: Current some day smoker Past Alcohol Use History: Occasional Past Drug Use History: Cocaine, Marijuana - Past Family History Father Family Medical History: Cancer Additional Family Medical History / Comment(s): lung cancer Mother Family Medical History: Thyroid Disorder Additional Family Medical History / Comment(s): ETOH Medications and Allergies Home Medications Medication Instructions Recorded Confirmed Type Buprenorphine/Naloxone 8Mg/2Mg 0.71005 - 0.0625 film SL DAILY 01/18/22 11/10/22 History [Suboxone 8-2Mg Film] Ferrous Sulfate [Feosol] 325 mg PO DAILY 01/18/22 11/10/22 History Loperamide [Imodium] 2 mg PO QID PRN 01/24/22 11/10/22 History Allergies Allergy/AdvReac Type Severity Reaction Status Date / Time Beef Containing Products AdvReac bowel Verified 11/10/22 10:36 [Beef] obstruction Physical Exam Vitals: Vital Signs Temp Pulse Pulse Resp BP Pulse Ox 11/10/22 11:02 96 18 100/72 97 11/10/22 09:50 81 18 97 11/10/22 09:18 78 18 144/76 11/10/22 08:54 137 H 18 11/10/22 08:47 98.1 F 144 H 18 114/79 96 11/10/22 08:13 142 H 11/10/22 07:59 98.2 F 84 20 124/97 98 Intake and Output 11/09/22 11/10/22 11/10/22 22:59 06:59 14:59 Intake Total 10.833 Balance 10.833 Intake: Intake, IV Titration 10.833 Amount Diltiazem 125 mg In 10.833 Sodium Chloride 0.9% 100 ml @ 5 MG/HR 5 mls/hr IV .Q24H [facility] Rx#:[id number] Other: Weight 78.018 kg PHYSICAL EXAMINATION: GENERAL: The patient is alert and oriented x3, not in any acute distress. Well developed, well nourished. HEENT: Pupils are round and equally reacting to light. EOMI. No scleral icterus. No conjunctival pallor. Normocephalic, atraumatic. No pharyngeal erythema. No thyromegaly. CARDIOVASCULAR: Irregularly irregular S1 and S2 present. No murmurs, rubs, or gallops. PULMONARY: Chest is clear to auscultation, no wheezing or crackles. ABDOMEN: Soft, nontender, nondistended, normoactive bowel sounds. No palpable organomegaly. MUSCULOSKELETAL: No joint swelling or deformity. EXTREMITIES: No cyanosis, clubbing, or pedal edema. NEUROLOGICAL: Gross neurological examination did not reveal any focal deficits. SKIN: No rashes. Results CBC & Chem 7: 11/10/22 08:08 11/10/22 08:08 Assessment and Plan Assessment: 1. New onset atrial fibrillation with RVR - Patient has been placed on IV Cardizem infusion and remains rate controlled - We will monitor EKG and trend troponin - Cardiology is consulted for further recommendations 2. History of asthma; currently not on any inhaler therapy 3. Chronic pain syndrome; patient's list of home medication indicates patient is taking Suboxone and oxycodone; patient reports that he does have prescription of Suboxone but he does not take it; we will discontinue 4. Depression/suicidal ideation; psychiatry is consulted DVT prophylaxis; SCDs CODE STATUS; DO NOT RESUSCITATE per patient request
[2022-11-11] MEDS: DILTIAZEM 125 MG in SODIUM CHLORIDE 0.9% 100 ML IV SCH (07:51)
[2022-11-11 08:37] LABS: Basophils % (A) 0 %; Eosinophils # (A) 0.2 k/uL (0-0.7); Eosinophils % (A) 2 %; HCT 47.8 % (39.0-53.0); HGB 15.3 gm/dL (13.0-17.5); Lymphocytes # (A) 1.4 k/uL (1.0-4.8); Lymphocytes % (A) 19 %; MCH 28.6 pg (25.0-35.0); MCHC 32.1 g/dL (31.0-37.0); MCV 89.1 fL (80.0-100.0); Mean Platelet Volume 7.3; Monocytes # (A) 0.3 k/uL (0-1.0); Monocytes % (A) 4 %; Neutrophils # (A) 5.3 k/uL (1.3-7.7); Neutrophils % (A) 73 %; Platelet Count 236 k/uL (150-450); RBC 5.36 m/uL (4.30-5.90); RDW 13.1 % (11.5-15.5); WBC 7.2 k/uL (3.8-10.6)
[2022-11-11 08:49] LABS: African American GFR (CKD) >90 (>60 ml/min/1.73 sqM); Anion Gap 8 mmol/L; Blood Urea Nitrogen 17 mg/dL (9-20); Calcium 8.8 mg/dL (8.4-10.2); Carbon Dioxide 29 mmol/L (22-30); Chloride 104 mmol/L (98-107); Glucose 93 mg/dL (74-99); Non-African American GFR(CKD) >90 (>60 ml/min/1.73 sqM); Potassium 3.9 mmol/L (3.5-5.1); Sodium 141 mmol/L (137-145)
[2022-11-11] MEDS ORDERED: ASPIRIN 325 MG TAB PO SCH (09:00)
[2022-11-11] MEDS ORDERED: FERROUS SULFATE 325 MG TAB PO SCH (09:00)
--- NOTE | 2022-11-11 10:59 | P.CRDCN ---
History of Present Illness Consult date: 11/11/22 Consult reason: atrial fibrillation (New onset) History of present illness: History of present illness: This is a 46-year-old male patient with no previous cardiac history, does not follow with a principal bioinformatics specialist. He has past medical history of kidney stones and Crohn's disease. Patient states that he was doing cocaine all night drove himself to work but he was an hour and a half late. He smoking a half a joint on his way to work to calm his nerves but when he met with his boss, he was very anxious started feeling palpitations. Palpitations seem to continue and did not go away.. He states he has extreme anxiety whenever he is an uncomfortable situation. Regarding drug use, patient uses cocaine, marijuana, has 1-2 drinks of alcohol per week. He denies history of hypertension, diabetes. EKG atrial fibrillation at 145 bpm. Telemetry normal sinus rhythm. Chest x-ray: No acute cardiopulmonary process Echocardiogram 11/10/2022: EF 60-65%. Mild increased left ventricular wall thickness. RVSP 27. Trace mitral regurgitation. Mild tricuspid regurgitation. CBC and CMP within normal limits. Troponin negative 3. TSH 1.05 Home cardiac medications: None Review Of Systems: At the time of my evaluation: Constitutional: No fever, no chills. No weakness, fatigue or lethargy. EENT: No headache. No dizziness. Lungs: No shortness of breath, cough, no sputum production. No wheezing. Cardiovascular: No chest pain, no lower extremity edema. No palpitations. No paroxysmal nocturnal dyspnea. No orthopnea. No lightheadedness or dizziness. No syncopal episodes. Abdominal: No abdominal pain. No nausea, vomiting. No diarrhea. No constipation. No bloody or tarry stools. Genitourinary: No dysuria.. No urinary retention. Musculoskeletal: No myalgias. No muscle weakness, no frequent falls. No back pain. No neck pain. Integumentary: No wounds. No rash. No unusual bruising. Neurologic: No aphasia. No facial droop. No change in mentation. No head injury. No headache. Physical examination: Gen: This is a 46-year-old male. He is resting in bed and appears to be comfortable and in no acute distress VS: reviewed HEENT: Head is atraumatic, normocephalic. Pupils equal, round. Sclerae is anicteric. NECK: Supple. No JVD. . LUNGS: Clear to auscultation. No wheezes or rhonchi. No intercostal retractio ns. HEART: Regular rate and rhythm. No murmur. ABDOMEN: Soft No tenderness. EXTREMITIES: No pedal edema. No calf tenderness. NEUROLOGICAL: Patient is awake, alert and oriented x3. Assessment: Paroxysmal atrial fibrillation not requiring anticoagulation, converted to sinus rhythm Cocaine use Marijuana use Kidney stones Crohn's disease Plan: Patient is cleared from cardiology for discharge. No further cardiac workup is necessary at this time. No anticoagulation nor rate control medications are needed. Patient has been instructed to stop cocaine, marijuana and will call use. Thank you kindly for this consultation. Nurse practitioner note has been reviewed, I agree with documented findings and plan of care. Patient was seen and examined. Past Medical History Past Medical History: Asthma Additional Past Medical History / Comment(s): Asthma as a child. Crohns. Hx kidney stones.-seen recently @[facility] for History of Any Multi-Drug Resistant Organisms: None Reported Past Surgical History: Appendectomy, Bowel Resection Additional Past Surgical History / Comment(s): lithotripsy. Kidney stent. 2 feet of intestine removed Past Anesthesia/Blood Transfusion Reactions: No Reported Reaction Past Psychological History: Anxiety, Depression Smoking Status: Current some day smoker Past Alcohol Use History: Occasional Past Drug Use History: Cocaine, Marijuana - Past Family History Father Family Medical History: Cancer Additional Family Medical History / Comment(s): lung cancer Mother Family Medical History: Thyroid Disorder Additional Family Medical History / Comment(s): ETOH Medications and Allergies Home Medications Medication Instructions Recorded Confirmed Type Buprenorphine/Naloxone 8Mg/2Mg 0.95920 - 0.0625 film SL DAILY 01/18/22 11/10/22 History [Suboxone 8-2Mg Film] Ferrous Sulfate [Feosol] 325 mg PO DAILY 01/18/22 11/10/22 History Loperamide [Imodium] 2 mg PO QID PRN 01/24/22 11/10/22 History Allergies Allergy/AdvReac Type Severity Reaction Status Date / Time Beef Containing Products AdvReac bowel Verified 11/10/22 10:36 [Beef] obstruction Physical Exam Vitals: Vital Signs Temp Pulse Pulse Resp BP BP Pulse Ox 11/11/22 04:00 97.7 F 62 18 96/58 95 11/10/22 23:33 97.3 F L 54 L 16 91/55 99 11/10/22 20:00 98.3 F 61 16 89/52 97 11/10/22 15:59 74 11/10/22 15:12 68 20 116/76 99 11/10/22 14:15 98.3 F 74 20 100/60 98 11/10/22 13:25 98.1 F 71 18 114/76 98 11/10/22 11:02 96 18 100/72 97 11/10/22 09:50 81 18 97 11/10/22 09:18 78 18 144/76 11/10/22 08:54 137 H 18 11/10/22 08:47 98.1 F 144 H 18 114/79 96 11/10/22 08:13 142 H Intake and Output 11/10/22 11/11/22 11/11/22 22:59 06:59 14:59 Intake Total 540 Balance 540 Intake: Oral 540 Other: Voiding Method Toilet # Voids 1 1 Results 11/11/22 08:07 11/11/22 08:07 Cardiac Enzymes 11/10/22 11/10/22 11/10/22 Range/Units 08:08 08:08 10:33 AST 26 (17-59) U/L Troponin I <0.012 <0.012 (0.000-0.034) ng/mL 11/10/22 Range/Units 16:00 AST (17-59) U/L Troponin I <0.012 (0.000-0.034) ng/mL Coagulation 11/10/22 Range/Units 08:08 PT 10.6 (9.0-12.0) sec APTT 22.8 (22.0-30.0) sec CBC 11/10/22 Range/Units 08:08 WBC 10.3 (3.8-10.6) k/uL RBC 5.64 (4.30-5.90) m/uL Hgb 16.0 (13.0-17.5) gm/dL Hct 48.5 (39.0-53.0) % Plt Count 246 (150-450) k/uL Comprehensive Metabolic Panel 11/10/22 Range/Units 08:08 Sodium 138 (137-145) mmol/L Potassium 3.5 (3.5-5.1) mmol/L Chloride 104 (98-107) mmol/L Carbon Dioxide 22 (22-30) mmol/L BUN 15 (9-20) mg/dL Creatinine 0.84 (0.66-1.25) mg/dL Glucose 94 (74-99) mg/dL Calcium 9.2 (8.4-10.2) mg/dL AST 26 (17-59) U/L ALT 16 (4-49) U/L Alkaline Phosphatase 49 (38-126) U/L Total Protein 6.6 (6.3-8.2) g/dL Albumin 4.1 (3.5-5.0) g/dL Current Medications Generic Name Dose Route Start Last Admin Trade Name Freq PRN Reason Stop Dose Admin Aspirin 325 mg 11/11/22 09:00 Aspirin 325 Mg Tab PO DAILY MANAV Ferrous Sulfate 325 mg 11/11/22 09:00 Ferrous Sulfate 325 Mg Tab PO DAILY MANAV Diltiazem HCl 125 mg/ Sodium 125 mls @ 5 mls/hr 11/10/22 08:30 11/11/22 07:51 Chloride IV Not Given .Q24H MANAV 5 MG/HR Loperamide HCl 2 mg 11/10/22 12:21 Loperamide 2 Mg Cap PO QID PRN malabsorption, diarrhea Nitroglycerin 0.4 mg 11/10/22 10:26 Nitroglycerin Sl Tabs 0.4 Mg Tab SUBLINGUAL Q5M PRN Chest Pain Intake and Output 11/10/22 11/11/22 11/11/22 22:59 06:59 14:59 Intake Total 540 Balance 540 Intake: Oral 540 Other: Voiding Method Toilet # Voids 1 1 11/10/22 08:08 11/10/22 08:08
[2022-11-11 11:24] LABS: Chol/HDL Ratio 2.08 Ratio; LDL Cholesterol,Calculated 63.4 mg/dL (0.0-131.0); VLDL Calculation 12.86 mg/dL (5.00-40.00)
[2022-11-11 12:54] VITALS: BP 98/61; PULSE 68; RESP 16; TEMP 97.8
--- NOTE | 2022-11-11 16:16 | P.CN ---
Psychiatric Consult - . 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 He is admitted for atrial fibrillation and psychiatry is consulted for depression with a history of suicidal ideations HPI: Patient presented to the hospital for atrial fibrillation. He states that during one of the assessments, he was asked if he had ever been depressed or suicidal in the past. He stated that he had fantasized about killing himself 2 weeks ago after he found out that he did not get a raise. However, last week, he received a raise and he has not had suicidal ideations for the past week. As bid writer was attempting to further assess and interview him, he became very irritable. He stated that he wants to go home because he needs to give his Medications and his cat has not had medications for 2 days. He denies any suicidal ideations for the past week, denies [place] guns, denies hallucinations, and denies homicidal ideations PAST PSYCHIATRIC HISTORY: States that he has been hospitalized in the past and does not follow up with a psychiatrist because he does not have time for it PMH: Asthma, new onset A. fib ALLERGIES: as per EMR CHEMICAL DEPENDENCY HISTORY: as per HPI FAMILY PSYCHIATRIC/SUBSTANCE USE HISTORY: Could not assess as patient was not cooperative SOCIAL HISTORY: Excessive welder fitter apprentice MENTAL STATUS EXAM: General Appearance: 46-year-old male who appears his stated age. Good hygiene and grooming. Behavior: Patient is cooperative at times but is uncooperative for a majority of the interview. Eventually interview had to be stopped. He is irritable Speech: Patient's speech is fluent Mood/Affect: Full range of affect Suicidality/Homicidality: Patient denies having any homicidal ideation intent or plan. [Denies any suicidal ideations intent or plan] Perceptions: Patient denies any visual hallucinations [and denies any auditory hallucinations] Though content/process: [There is no evidence of any delusional thought content and thought process is linear and goal-directed.] Memory and concentration: AOX3, grossly intact for the purposes of this session. Judgment and insight: Fair IMPRESSIONS: Depression unspecified Although bid writer could not obtain a full comprehensive history from the patient, patient has not been suicidal for the past week and is currently not psychotic, manic, or appear to be significantly depressed. He reported suicidal thoughts appear to be due to a stressor at work and that stressor has now resolved as half his suicidal thoughts. Therefore, patient does not meet criteria for inpatient psychiatric hospitalization and can be discharged PLAN: -psychiatrically cleared -not interested in meds or outpatient mental health follow up even though he would benefit from it -psych will sign off
== END 2022-11-11 14:50 | disposition home or self-care (01) ==
LOC: EC 07:57 → 3SCARD 10:36
PROVIDERS: ADMIT Internal Medicine; ATTEND Internal Medicine
DX: I48.0 Paroxysmal atrial fibrillation (principal); F41.9 Anxiety disorder, unspecified; F32.A Depression, unspecified; G89.4 Chronic pain syndrome; K50.90 Crohn's disease, unspecified, without complications; R45.851 Suicidal ideations; J45.909 Unspecified asthma, uncomplicated; F14.90 Cocaine use, unspecified, uncomplicated; I07.1 Rheumatic tricuspid insufficiency; F12.90 Cannabis use, unspecified, uncomplicated; F17.200 Nicotine dependence, unspecified, uncomplicated; Z79.891 Long term (current) use of opiate analgesic; Z79.899 Other long term (current) drug therapy; Z91.014 Allergy to mammalian meats; Z91.018 Allergy to other foods; Z71.51 Drug abuse counseling and surveillance of drug abuser; Z66 Do not resuscitate; Z87.442 Personal history of urinary calculi; Z90.49 Acquired absence of other specified parts of digestive tract; Z98.890 Other specified postprocedural states; Z80.1 Family history of malignant neoplasm of trachea, bronchus and lung; Z83.49 Family history of other endocrine, nutritional and metabolic diseases
CPT/HCPCS: 96376; 96361; 96365; 96366; 99284; 99285; 36415; 93005; 93306; 80061; 80053; 80048; 84443; 83735; 84484; 85025 ×2; 85610; 85730; 83036; 71046; G0378 ×2

== ENCOUNTER 2023-03-15 08:14 | Emergency (ER) | payer OTHER ==
[2023-03-15 08:37] VITALS: TEMP 98.6
[2023-03-15] MEDS ORDERED: SODIUM CHLORIDE 0.9% 1,000 ML IV STA (08:51)
[2023-03-15] MEDS ORDERED: ONDANSETRON 4 MG/2 ML VIAL IVP STA (08:51)
[2023-03-15] MEDS ORDERED: KETOROLAC 15 MG/ML 1 ML VIAL IVP STA (08:51)
[2023-03-15 08:54] LABS: Appearance,Urine Clear (Clear); Bilirubin,Urine Negative (Negative); Blood,Urine Negative (Negative); Color,Urine Light Red; Glucose,Urine (UA) Negative (Negative); Ketones,Urine Negative (Negative); Leukocyte Esterase,Urine Negative (Negative); Nitrite,Urine Negative (Negative); Protein,Urine Negative (Negative); Specific Gravity,Urine 1.019 (1.001-1.035); Urobilinogen,Urine <2.0 mg/dL (<2.0)
--- NOTE | 2023-03-15 08:55 | ED ---
General Adult HPI - General Chief complaint: Abdominal Pain Stated complaint: kidney stone Time Seen by Provider: 03/15/23 08:40 Source: patient, RN notes reviewed, old records reviewed Mode of arrival: wheelchair - History of Present Illness Initial comments: This is a 47-year-old male who presents to the emergency room with a past medical history significant for kidney stones. Patient states this morning 7:00 started having right flank pain very indicative of previous kidney stones. Patient states standing makes it worse lying down makes it better but it still there and a 4-10 per patient states she's very nauseated but has yet to vomit. Patient states that have surgery in the past removed kidney stones. Patient denies any hematuria. Patient denies any fever chills. Patient is any back pain. Patient denies any chest pain difficulty breathing or shortness of b reath. - Related Data Home Medications Medication Instructions Recorded Confirmed Buprenorphine/Naloxone 8Mg/2Mg 0.80403 - 0.0625 film SL DAILY 01/18/22 11/10/22 [Suboxone 8-2Mg Film] Ferrous Sulfate [Iron (65 MG 325 mg PO DAILY 01/18/22 11/10/22 Elemental)] Loperamide [Imodium] 2 mg PO QID PRN 01/24/22 11/10/22 Previous Rx's Medication Instructions Recorded Aspirin 325 mg PO DAILY tab 11/11/22 Allergies Allergy/AdvReac Type Severity Reaction Status Date / Time Beef Containing Products AdvReac bowel Verified 11/10/22 10:36 [Beef] obstruction soy AdvReac Unknown Verified 03/15/23 08:38 Review of Systems ROS Statement: Those systems with pertinent positive or pertinent negative responses have been documented in the HPI. ROS Other: All systems not noted in ROS Statement are negative. Past Medical History Past Medical History: Asthma Additional Past Medical History / Comment(s): Asthma as a child. Crohns. Hx kidney stones History of Any Multi-Drug Resistant Organisms: None Reported Past Surgical History: Appendectomy, Bowel Resection Additional Past Surgical History / Comment(s): lithotripsy. Kidney stent. 2 feet of intestine removed Past Anesthesia/Blood Transfusion Reactions: No Reported Reaction Past Psychological History: Anxiety, Depression Smoking Status: Current some day smoker Past Alcohol Use History: Occasional Past Drug Use History: Cocaine, Marijuana - Past Family History Father Family Medical History: Cancer Additional Family Medical History / Comment(s): lung cancer Mother Family Medical History: Thyroid Disorder Additional Family Medical History / Comment(s): ETOH General Exam - General Exam Comments Initial Comments: GENERAL: Patient is well-developed and well-nourished. Patient is nontoxic and well- hydrated and is in mild distress. ENT: Neck is soft and supple. No significant lymphadenopathy is noted. Oropharynx is clear. Moist mucous membranes. Neck has full range of motion without eliciting any pain. EYES: The sclera were anicteric and conjunctiva were pink and moist. Extraocular movements were intact and pupils were equal round and reactive to light. Eyelids were unremarkable. PULMONARY: Unlabored respirations. Good breath sounds bilaterally. No audible rales rh onchi or wheezing was noted. CARDIOVASCULAR: There is a regular rate and rhythm without any murmurs gallops or rubs. ABDOMEN: Soft and nontender with normal bowel sounds. SKIN: Skin is clear with no lesions or rashes and otherwise unremarkable. NEUROLOGIC: Patient is alert and oriented x3. Cranial nerves II through XII are grossly intact. Motor and sensory are also intact. Normal speech, volume and content. Symmetrical smile. MUSCULOSKELETAL: Normal extremities with adequate strength and full range of motion. LYMPHATICS: No significant lymphadenopathy is noted PSYCHIATRIC: Normal psychiatric evaluation. Course Vital Signs 03/15/23 08:32 Temperature 98.6 F Pulse Rate 79 Respiratory 18 Rate Blood Pressure 96/61 O2 Sat by Pulse 99 Oximetry Medical Decision Making - Medical Decision Making Was pt. sent in by a medical professional or institution (, ROSS, JOURNEYMAN [facility], urgent care, hospital, or half-way...) When possible be specific @ -No Did you speak to anyone other than the patient for history (EMS, parent, family, police, friend...)? What history was obtained from this source @ -No Did you review nursing and triage notes (agree or disagree)? Why? @ -I reviewed and agree with nursing and triage notes Were old charts reviewed (outside hosp., previous admission, EMS record, old EKG, old radiological studies, urgent care reports/EKG's, half-way records)? Report findings @ -Prior charts a prior labwork on this patient Differential Diagnosis (chest pain, altered mental status, abdominal pain women, abdominal pain men, vaginal bleeding, weakness, fever, dyspnea, syncope, headache, dizziness, GI bleed, back pain, seizure, CVA, palpatations, mental health, musculoskeletal)? @ -Differential Abdominal Pain Men: Appendicitis, cholecystitis, diverticulosis, ischemic bowel, pancreatitis, hepatitis, UTI, gastroenteritis, AAA, incarcerated hernia, bowel obstruction, constipation, inflammatory bowel, hepatitis, peptic ulcer disease, splenic infarction, perforated viscus, testicular torsion, this is not meant to be an all-inclusive list EKG interpreted by me (3pts min.). @ -As above X-rays interpreted by me (1pt min.). @ -KUB showed no acute abnormality CT interpreted by me (1pt min.). @ -CT scan showed some mild dilatation of the right ureter consistent with a past stone U/S interpreted by me (1pt. min.). @ -None done What testing was considered but not performed or refused? (CT, X-rays, U/S, labs)? Why? @ -None What meds were considered but not given or refused? Why? @ -None Did you discuss the management of the patient with other professionals (professionals i.e. , PA, JOURNEYMAN PLUMBER, lab, RT, psych nurse, social service liaison, planning feeder, teacher, environmental protection officer, case coordinator)? Give summary @ -No Was smoking cessation discussed for >3mins.? @ -No Was critical care preformed (if so, how long)? @ -No Were there social determinants of health that impacted care today? How? (Homelessness, low income, unemployed, alcoholism, drug addiction, transportation, low edu. Level, literacy, decrease access to med. care, residential, rehab)? @ -No Was there de-escalation of care discussed even if they declined (Discuss DNR or withdrawal of care, Hospice)? DNR status @ -No What co-morbidities impacted this encounter? (DM, HTN, Smoking, COPD, CAD, Cancer, CVA, ARF, Chemo, Hep., AIDS, mental health diagnosis, sleep apnea, morbid obesity)? @ -None Was patient admitted / discharged? Hospital course, mention meds given and route, prescriptions, significant lab abnormalities, going to OR and other pertinent info. @ -Patient was comfortable throughout his ED stay. Patient did receive Toradol emergency department. Patient had results discussed with him and at that point time he got up and ambulating he felt fine and patient will be discharged home. Undiagnosed new problem with uncertain prognosis? @ -No Drug Therapy requiring intensive monitoring for toxicity (Heparin, Nitro, Insulin, Cardizem)? @ -No Were any procedures done? @ -No Diagnosis/symptom? @ -Renal colic Acute, or Chronic, or Acute on Chronic? @ -Acute Uncomplicated (without systemic symptoms) or Complicated (systemic symptoms)? @ -Complicated Side effects of treatment? @ -No Exacerbation, Progression, or Severe Exacerbation? @ -No Poses a threat to life or bodily function? How? (Chest pain, [place], [place], pneumonia, PE, COPD, DKA, ARF, appy, cholecystitis, CVA, Diverticulitis, Homicidal, Suicidal, threat to staff... and all critical care pts) @ -No - Lab Data Result diagrams: 03/15/23 09:19 03/15/23 09:19 Lab Results 03/15/23 03/15/23 03/15/23 Range/Units 08:45 09:19 09:19 WBC 9.2 (3.8-10.6) k/uL RBC 4.93 (4.30-5.90) m/uL Hgb 15.0 (13.0-17.5) gm/dL Hct 45.2 (39.0-53.0) % MCV 91.7 (80.0-100.0) fL MCH 30.3 (25.0-35.0) pg MCHC 33.1 (31.0-37.0) g/dL RDW 13.0 (11.5-15.5) % Plt Count 245 (150-450) k/uL MPV 9.1 Neutrophils % 79 % Lymphocytes % 13 % Monocytes % 5 % Eosinophils % 2 % Basophils % 0 % Neutrophils # 7.3 (1.3-7.7) k/uL Lymphocytes # 1.2 (1.0-4.8) k/uL Monocytes # 0.4 (0-1.0) k/uL Eosinophils # 0.2 (0-0.7) k/uL Basophils # 0.0 (0-0.2) k/uL Sodium 138 (137-145) mmol/L Potassium 4.8 (3.5-5.1) mmol/L Chloride 104 (98-107) mmol/L Carbon Dioxide 27 (22-30) mmol/L Anion Gap 7 mmol/L BUN 17 (9-20) mg/dL Creatinine 0.92 (0.66-1.25) mg/dL Est GFR (CKD-EPI)AfAm >90 (>60 ml/min/1.73 sqM) Est GFR (CKD-EPI)NonAf >90 (>60 ml/min/1.73 sqM) Glucose 79 (74-99) mg/dL Calcium 8.9 (8.4-10.2) mg/dL Total Bilirubin 0.7 (0.2-1.3) mg/dL AST 20 (17-59) U/L ALT 12 (4-49) U/L Alkaline Phosphatase 39 (38-126) U/L Total Protein 7.0 (6.3-8.2) g/dL Albumin 4.2 (3.5-5.0) g/dL Amylase 71 (30-110) U/L Lipase 100 (23-300) U/L Urine Color Light Red Urine Appearance Clear (Clear) Urine pH 7.0 (5.0-8.0) Ur Specific [place] 1.019 (1.001-1.035) Urine Protein Negative (Negative) Urine Glucose (UA) Negative (Negative) Urine Ketones Negative (Negative) Urine Blood Negative (Negative) Urine Nitrite Negative (Negative) Urine Bilirubin Negative (Negative) Urine Urobilinogen <2.0 (<2.0) mg/dL Ur Leukocyte Esterase Negative (Negative) Disposition Clinical Impression: Renal colic Disposition: HOME SELF-CARE Instructions (If sedation given, give patient instructions): Renal Colic (ED) Is patient prescribed a controlled substance at d/c from ED?: No Referrals: Yeny Pulliam MD [REFERRING] - 1-2 days Time of Disposition: 11:29
--- NOTE | 2023-03-15 09:58 | XR ---
EXAMINATION TYPE: XR KUB DATE OF EXAM: 03/15/2023 COMPARISON: 01/26/2022 HISTORY: Nausea and pain TECHNIQUE: One view abdominal series FINDINGS: The osseous structures are intact. The bowel gas pattern is nonspecific. Lung bases are clear. Vasc ular phleboliths in the pelvis. A previous surgery involving the right abdominal cavity. Bilateral hi p arthropathy. Hypertrophic and degenerative changes of the spine. IMPRESSION: 1. Nonspecific abdomen. No diagnostic evidence of obstruction.
[2023-03-15 10:16] LABS: Basophils % (A) 0 %; Eosinophils # (A) 0.2 k/uL (0-0.7); Eosinophils % (A) 2 %; HCT 45.2 % (39.0-53.0); Lymphocytes # (A) 1.2 k/uL (1.0-4.8); Lymphocytes % (A) 13 %; MCH 30.3 pg (25.0-35.0); MCHC 33.1 g/dL (31.0-37.0); MCV 91.7 fL (80.0-100.0); Mean Platelet Volume 9.1; Monocytes # (A) 0.4 k/uL (0-1.0); Monocytes % (A) 5 %; Neutrophils # (A) 7.3 k/uL (1.3-7.7); Neutrophils % (A) 79 %; Platelet Count 245 k/uL (150-450); RBC 4.93 m/uL (4.30-5.90); WBC 9.2 k/uL (3.8-10.6)
--- NOTE | 2023-03-15 10:49 | CT ---
EXAMINATION TYPE: CT abdomen pelvis wo con CT DLP: 542.1 mGycm, Automated exposure control for dose reduction was used. DATE OF EXAM: 03/15/2023 10:24 AM COMPARISON: None. CLINICAL INDICATION:Male, 47 years old with history of Flank pain; Right flank pain. TECHNIQUE: Axial CT of the abdomen and pelvis. Sagittal and coronal reformats were created on a [employer] workstation. Contrast used: mL of , (none if empty) Oral contrast used: without Oral Contrast (none if empty) FINDINGS: LOWER CHEST: Unremarkable ABDOMEN LIVER: Unremarkable GALLBLADDER AND BILE DUCTS: Unremarkable. PANCREAS: Unremarkable. SPLEEN: Unremarkable. ADRENAL GLANDS: Unremarkable. KIDNEYS AND URETERS: 2 mm nonobstructing right calculus as well as 1-2 mm left renal calculi. No evid ence of obstructive uropathy. PELVIS BLADDER: Unremarkable REPRODUCTIVE: Unremarkable. ABDOMEN & PELVIS STOMACH AND BOWEL: No evidence of bowel obstruction. Postsurgical changes to the colon. PERITONEUM/RETROPERITONEUM: No evidence of pneumoperitoneum or free fluid. VASCULATURE: No evidence of aortic aneurysm. MUSCULOSKELETAL: No acute osseous abnormalities LYMPH NODES: No gross evidence for lymphadenopathy. SOFT TISSUE/ABDOMINAL WALL: Anterior abdominal wall fat-containing umbilical hernia. Calcified lesion s in the anterior wall. IMPRESSION: Small 1 to 2 mm renal calculi bilaterally. Mild dilation of the right renal collecting system. No obs tructive calculus in the visualized correlate for recently passed stone.
[2023-03-15 10:50] LABS: ALT 12 U/L (4-49); AST 20 U/L (17-59); African American GFR (CKD) >90 (>60 ml/min/1.73 sqM); Albumin 4.2 g/dL (3.5-5.0); Alkaline Phosphatase 39 U/L (38-126); Amylase 71 U/L (30-110); Anion Gap 7 mmol/L; Blood Urea Nitrogen 17 mg/dL (9-20); Calcium 8.9 mg/dL (8.4-10.2); Carbon Dioxide 27 mmol/L (22-30); Chloride 104 mmol/L (98-107); Glucose 79 mg/dL (74-99); Lipase 100 U/L (23-300); Non-African American GFR(CKD) >90 (>60 ml/min/1.73 sqM); Potassium 4.8 mmol/L (3.5-5.1); Sodium 138 mmol/L (137-145); Total Bilirubin 0.7 mg/dL (0.2-1.3)
[2023-03-15 11:47] VITALS: BP 96/50; PULSE 57; RESP 16
== END 2023-03-15 11:45 | disposition home or self-care (01) ==
LOC: EC 08:14
DX: N23 Unspecified renal colic (principal); J45.909 Unspecified asthma, uncomplicated; F17.200 Nicotine dependence, unspecified, uncomplicated; F14.90 Cocaine use, unspecified, uncomplicated; F12.90 Cannabis use, unspecified, uncomplicated; Z91.018 Allergy to other foods; Z86.59 Personal history of other mental and behavioral disorders
CPT/HCPCS: 36415; 80053; 82150; 83690; 85025; 81003; 74018; 74176; 99285; 96374; 96375; 96361; J2405; J1885

== ENCOUNTER 2025-02-09 10:01 | Emergency (ER) | payer BC ==
--- NOTE | 2025-02-09 10:36 | ED ---
Back Pain HPI - General Chief Complaint: Back Pain/Injury Stated Complaint: Abd Pain Time Seen by Provider: 02/09/25 10:12 Source: patient, RN notes reviewed Mode of arrival: ambulatory Limitations: no limitations - History of Present Illness Initial Comments: This is a 49-year-old male who presents to the emergency department for right flank pain. States that it started around 5 AM. Pain is described as sharp. Denies any radiation of pain or associated nausea or vomiting. Earlier this month patient had a lithotripsy and basketing of stones. States that the pain almost feels like what he would expect postop after a stent. However, states that he did not have a stent placed this time and does not believe he would already have another kidney stone. Denies any injuries. Denies any urinary symptoms or fevers/chills. MD Complaint: back pain - Related Data Home Medications Medication Instructions Recorded Confirmed Loperamide [Imodium] 2 mg PO QID PRN 01/24/22 01/12/25 Previous Rx's Medication Instructions Recorded Ketorolac [Toradol] 10 mg PO Q6HR PRN #15 tab 01/12/25 Cyclobenzaprine [Flexeril] 10 mg PO TID PRN #30 tab 02/09/25 HYDROcodone/APAP 5-325MG [White Bird 1 tab PO Q6HR PRN 3 Days #12 tab 02/09/25 5-325] Ketorolac [Toradol] 10 mg PO Q6HR PRN #15 tab 02/09/25 Lidocaine 5% Patch [Lidoderm 5% 1 patch TOPICAL DAILY PRN #30 patch 02/09/25 Patch] Allergies Allergy/AdvReac Type Severity Reaction Status Date / Time Beef Containing Products AdvReac bowel Verified 02/09/25 10:11 [Beef] obstruction soy AdvReac Unknown Verified 02/09/25 10:11 Review of Systems ROS Statement: Those systems with pertinent positive or pertinent negative responses have been documented in the HPI. ROS Other: All systems not noted in ROS Statement are negative. Past Medical History Past Medical History: Atrial Fibrillation, Asthma Additional Past Medical History / Comment(s): Asthma as a child. Crohns. Hx kidney stones A fib approx 1 yrs ago no longer an issue History of Any Multi-Drug Resistant Organisms: None Reported Past Surgical History: Appendectomy, Bowel Resection Additional Past Surgical History / Comment(s): lithotripsy. Kidney stent. 2 feet of intestine removed Past Anesthesia/Blood Transfusion Reactions: No Reported Reaction Past Psychological History: Anxiety, Depression Smoking Status: Current some day smoker Past Alcohol Use History: Daily Past Drug Use History: Marijuana - Past Family History Father Family Medical History: Cancer Additional Family Medical History / Comment(s): lung cancer Mother Family Medical History: Thyroid Disorder Additional Family Medical History / Comment(s): ETOH General Exam Limitations: no limitations General appearance: alert, in no apparent distress Head exam: Present: atraumatic, normocephalic, normal inspection Respiratory exam: Present: normal lung sounds bilaterally. Absent: respiratory distress, wheezes, rales, rhonchi, stridor Cardiovascular Exam: Present: regular rate, normal rhythm GI/Abdominal exam: Present: soft, normal bowel sounds. Absent: distended, tenderness, guarding, rebound, rigid Back exam: Present: other (Tenderness over the right lower back). Absent: CVA tenderness (R), CVA tenderness (L) Neurological exam: Present: alert, oriented X3, CN II-XII intact Psychiatric exam: Present: normal affect, normal mood Skin exam: Present: warm, dry, intact, normal color. Absent: rash Course Vital Signs 02/09/25 02/09/25 02/09/25 10:07 13:27 13:54 Temperature 98 F 98.3 F Pulse Rate 82 71 66 Respiratory 18 18 20 Rate Blood Pressure 144/84 131/88 129/79 O2 Sat by Pulse 98 97 97 Oximetry Medical Decision Making - Medical Decision Making This is a 49 year old male who presents to the emergency department for right lower back pain. Was pt. sent in by a medical professional or institution? @ -No Did you speak to anyone other than the patient for history? @ -No Did you review nursing and triage notes? @ -Yes, and I agree, it is accurate with regards to the patient's symptoms. Were old charts reviewed? @ -No Differential Diagnosis? @ -Differential Back Pain: Strain, zoster, cauda equina syndrome, epidural abscess, vertebral osteomyelitis, discitis, fracture, subluxation, disc herniation, DJD, spinal stenosis, dissection, AAA, pancreatitis, peptic ulcer disease, pyelonephritis, kidney stone, this is not meant to be an all-inclusive list. EKG interpreted by me (3pts min.)? @ -Not obtained X-rays interpreted by me (1pt min.)? @ -Not obtained CT interpreted by me (1pt min.)? @ -CT scan of the abdomen and pelvis obtained. My interpretation identifies no bowel wall thickening or free air. U/S interpreted by me (1pt. min.)? @ -Not obtained What testing was considered but not performed? (CT, X-rays, U/S, labs)? Why? @ -None What meds were considered but not given? Why? @ -None Did you discuss the management of the patient with other professionals? @ -No Did you reconcile home meds? @ -No Was smoking cessation discussed for >3mins.? @ -No Was critical care preformed (if so, how long)? @ -No Were there social determinants of health that impacted care today? How? (Homelessness, low income, unemployed, alcoholism, drug addiction, transportation, low edu. Level, literacy, decrease access to med. care, fdc, rehab)? @ -No Was there de-escalation of care discussed even if they declined? (Discuss DNR or withdrawal of care, Hospice)? @ -No What co-morbidities impacted this encounter? (DM, HTN, Smoking, COPD, CAD, Cancer, CVA, Hep., AIDS, mental health diagnosis, sleep apnea, morbid obesity)? @ -Kidney stones Was patient admitted / discharged? @ -Discharged. Lab work demonstrates mild leukocytosis with a white blood cell count of 14.84. Urinalysis demonstrates a small amount of blood but is not suggestive of infection. CT scan of the abdomen and pelvis demonstrates a fat- containing umbilical hernia, however there is otherwise no acute process to account for his current pain. Advised that it may be musculoskeletal in nature, especially given that it is more so in the lower back than the flank when the patient points to the bothersome area. Pain was treated in the emergency department. Prescription for pain medication provided with dosing instructions reviewed. Advised follow-up with his PCP for reevaluation. Patient discharged home in stable condition. Case discussed with ED attending Dr. Rivera. Return precautions reviewed in depth, the patient is instructed to return to the emergency department with any new, worsening, or concerning symptoms. Patient verbalized understanding. Undiagnosed new problem with uncertain prognosis? @ -None Drug Therapy requiring intensive monitoring for toxicity (Heparin, Nitro, Insulin, Cardizem)? @ -None Were any procedures done? @ -None Diagnosis/symptom? @ -Right lower back pain Acute, or Chronic, or Acute on Chronic? @ -Acute Uncomplicated (without systemic symptoms) or Complicated (systemic symptoms)? @ -Uncomplicated Side effects of treatment? @ -None Exacerbation, Progression, or Severe Exacerbation] @ -Not applicable Poses a threat to life or bodily function? @ -No - Lab Data Result diagrams: 02/09/25 11:15 02/09/25 11:15 Lab Results 02/09/25 02/09/25 02/09/25 Range/Units 11:10 11:15 11:15 WBC 14.84 H (4.50-10.00) 10*3/uL RBC 5.10 (4.40-5.60) 10*6/uL Hgb 15.8 (13.0-17.0) g/dL Hct 46.6 (39.6-50.0) % MCV 91.4 (80.0-97.0) fL MCH 31.0 (27.0-32.0) pg MCHC 33.9 (32.0-37.0) g/dL Plt Count 238 (140-440) 10*3/uL MPV 10.2 (9.5-12.2) fL Immature Gran % (Auto) 0.3 % Neutrophils % 78.8 % Lymphocytes % 12.8 % Monocytes % 7.2 % Eosinophils % 0.4 % Basophils % 0.5 % Immature Gran # 0.05 H (0.00-0.04) 10*3/uL Neutrophils # 11.69 H (1.80-7.70) 10*3/uL Lymphocytes # 1.90 (0.90-5.00) 10*3/uL Monocytes # 1.07 H (0.20-1.00) 10*3/uL Eosinophils # 0.06 (0.04-0.35) 10*3/uL Basophils # 0.07 (0.00-0.10) 10*3/uL Sodium 136 L (137-145) mmol/L Potassium 3.7 (3.5-5.1) mmol/L Chloride 102 (98-107) mmol/L Carbon Dioxide 26 (22-30) mmol/L Anion Gap 8 mmol/L BUN 17 (9-20) mg/dL Creatinine 0.96 (0.66-1.25) mg/dL Est GFR (CKD-EPI)AfAm >90 (>60 ml/min/1.73 sqM) Est GFR (CKD-EPI)NonAf >90 (>60 ml/min/1.73 sqM) Glucose 101 H (74-99) mg/dL Plasma Lactic Acid Inder (0.7-2.0) mmol/L Calcium 9.6 (8.4-10.2) mg/dL Total Bilirubin 1.1 (0.2-1.3) mg/dL AST 23 (17-59) U/L ALT 13 (4-49) U/L Alkaline Phosphatase 60 (38-126) U/L Total Protein 7.5 (6.3-8.2) g/dL Albumin 4.7 (3.5-5.0) g/dL Lipase 68 (23-300) U/L Urine Color Yellow Urine Appearance Clear (Clear) Urine pH 7.5 (5.0-8.0) Ur Specific Onyx 1.024 (1.001-1.035) Urine Protein Trace H (Negative) Urine Glucose (UA) Negative (Negative) Urine Ketones 1+ H (Negative) Urine Blood Trace H (Negative) Urine Nitrite Negative (Negative) Urine Bilirubin Negative (Negative) Urine Urobilinogen 2.0 (<2.0) mg/dL Ur Leukocyte Esterase Negative (Negative) Urine RBC 13 H (0-5) /hpf Urine WBC 1 (0-5) /hpf Urine Bacteria Rare H (None) /hpf Urine Mucus Rare H (None) /hpf 02/09/ Range/Units 11:15 WBC (4.50-10.00) 10*3/uL RBC (4.40-5.60) 10*6/uL Hgb (13.0-17.0) g/dL Hct (39.6-50.0) % MCV (80.0-97.0) fL MCH (27.0-32.0) pg MCHC (32.0-37.0) g/dL Plt Count (140-440) 10*3/uL MPV (9.5-12.2) fL Immature Gran % (Auto) % Neutrophils % % Lymphocytes % % Monocytes % % Eosinophils % % Basophils % % Immature Gran # (0.00-0.04) 10*3/uL Neutrophils # (1.80-7.70) 10*3/uL Lymphocytes # (0.90-5.00) 10*3/uL Monocytes # (0.20-1.00) 10*3/uL Eosinophils # (0.04-0.35) 10*3/uL Basophils # (0.00-0.10) 10*3/uL Sodium (137-145) mmol/L Potassium (3.5-5.1) mmol/L Chloride (98-107) mmol/L Carbon Dioxide (22-30) mmol/L Anion Gap mmol/L BUN (9-20) mg/dL Creatinine (0.66-1.25) mg/dL Est GFR (CKD-EPI)AfAm (>60 ml/min/1.73 sqM) Est GFR (CKD-EPI)NonAf (>60 ml/min/1.73 sqM) Glucose (74-99) mg/dL Plasma Lactic Acid Inder 1.0 (0.7-2.0) mmol/L Calcium (8.4-10.2) mg/dL Total Bilirubin (0.2-1.3) mg/dL AST (17-59) U/L ALT (4-49) U/L Alkaline Phosphatase (38-126) U/L Total Protein (6.3-8.2) g/dL Albumin (3.5-5.0) g/dL Lipase (23-300) U/L Urine Color Urine Appearance (Clear) Urine pH (5.0-8.0) Ur Specific Onyx (1.001-1.035) Urine Protein (Negative) Urine Glucose (UA) (Negative) Urine Ketones (Negative) Urine Blood (Negative) Urine Nitrite (Negative) Urine Bilirubin (Negative) Urine Urobilinogen (<2.0) mg/dL Ur Leukocyte Esterase (Negative) Urine RBC (0-5) /hpf Urine WBC (0-5) /hpf Urine Bacteria (None) /hpf Urine Mucus (None) /hpf - Radiology Data Radiology results: report reviewed, image reviewed Disposition Clinical Impression: Low back pain, Right-sided back pain Disposition: HOME SELF-CARE Instructions (If sedation given, give patient instructions): Acute Low Back Pain (ED) Additional Instructions: Return to the emergency department with any new, worsening, or concerning sym ptoms. Take the Toradol with Tylenol as needed for pain relief. If you choose to take the Toradol, do not take any other anti-inflammatories such as ibuprofen, take one or the other. Take the Flexeril up to 3 times daily, however be aware that it may make you drowsy. Take the White Bird sparingly when your pain is the most severe. You can also apply the lidocaine patches daily. Follow up with your primary care provider in 1-2 days. Prescriptions: Cyclobenzaprine [Flexeril] 10 mg PO TID PRN #30 tab PRN Reason: Pain Lidocaine 5% Patch [Lidoderm 5% Patch] 1 patch TOPICAL DAILY PRN #30 patch PRN Reason: Pain HYDROcodone/APAP 5-325MG [White Bird 5-325] 1 tab PO Q6HR PRN 3 Days #12 tab PRN Reason: Pain Ketorolac [Toradol] 10 mg PO Q6HR PRN #15 tab PRN Reason: Pain Is patient prescribed a controlled substance at d/c from ED?: Yes When asked, does pt state using other controlled substances?: No If prescribed controlled substance>3 days was MAPS reviewed?: Prescribed <3 Days Referrals: Yeny Pulliam MD [Primary Care Provider] - 1-2 days Time of Disposition: 13:42
[2025-02-09] MEDS: SODIUM CHLORIDE 0.9% 1,000 ML IV ONE (11:18)
[2025-02-09] MEDS: KETOROLAC 15 MG/ML 1 ML VIAL IVP STA (11:18)
[2025-02-09] MEDS: MORPHINE SULFATE 4 MG/ML SYRINGE IVP STA (11:19)
[2025-02-09 11:40] LABS: Appearance,Urine Clear (Clear); Bacteria,Urine Rare /hpf; Bilirubin,Urine Negative (Negative); Blood,Urine Trace (Negative); Color,Urine Yellow; Glucose,Urine (UA) Negative (Negative); Ketones,Urine 1+ (Negative); Leukocyte Esterase,Urine Negative (Negative); Mucus,Urine Rare /hpf; Nitrite,Urine Negative (Negative); PH, Urine 7.5 (5.0-8.0); Protein,Urine Trace (Negative); RBC,Urine 13 /hpf (0-5); Specific Gravity,Urine 1.024 (1.001-1.035); WBC,Urine 1 /hpf (0-5)
[2025-02-09 11:48] LABS: Basophils # (A) 0.07 10*3/uL (0.00-0.10); Basophils % (A) 0.5 %; Eosinophils # (A) 0.06 10*3/uL (0.04-0.35); Eosinophils % (A) 0.4 %; HCT 46.6 % (39.6-50.0); HGB 15.8 g/dL (13.0-17.0); Lymphocytes % (A) 12.8 %; MCHC 33.9 g/dL (32.0-37.0); MCV 91.4 fL (80.0-97.0); Mean Platelet Volume 10.2 fL (9.5-12.2); Monocytes # (A) 1.07 10*3/uL (0.20-1.00); Monocytes % (A) 7.2 %; Neutrophils # (A) 11.69 10*3/uL (1.80-7.70); Neutrophils % (A) 78.8 %; Platelet Count 238 10*3/uL (140-440); RDW 11.7 % (11.5-14.5); WBC 14.84 10*3/uL (4.50-10.00)
[2025-02-09 11:51] LABS: ALT 13 U/L (4-49); AST 23 U/L (17-59); African American GFR (CKD) >90 (>60 ml/min/1.73 sqM); Albumin 4.7 g/dL (3.5-5.0); Alkaline Phosphatase 60 U/L (38-126); Anion Gap 8 mmol/L; Blood Urea Nitrogen 17 mg/dL (9-20); Calcium 9.6 mg/dL (8.4-10.2); Carbon Dioxide 26 mmol/L (22-30); Chloride 102 mmol/L (98-107); Glucose 101 mg/dL (74-99); Lipase 68 U/L (23-300); Non-African American GFR(CKD) >90 (>60 ml/min/1.73 sqM); Potassium 3.7 mmol/L (3.5-5.1); Sodium 136 mmol/L (137-145); Total Bilirubin 1.1 mg/dL (0.2-1.3); Total Protein 7.5 g/dL (6.3-8.2)
--- NOTE | 2025-02-09 12:20 | CT ---
EXAMINATION TYPE: CT abdomen pelvis wo con DATE OF EXAM: 02/09/2025 11:52 AM COMPARISON: None. CLINICAL INDICATION: Male, 49 years old with history of Right flank pain, rt flank pain TECHNIQUE: Axial images with sagittal coronal reformats. Examination of the solid and hollow viscera is limited given the lack of contrast. CT DLP: 573.8 mGycm, Automated exposure control for dose reduction was used. FINDINGS: LUNG BASES: No evidence for nodule. No evidence for infiltrate. LIVER/GB: The gallbladder is unremarkable. No space-occupying hepatic lesion. PANCREAS: No pancreatic mass identified. No inflammatory process seen. SPLEEN: No evidence for splenomegaly. No intrasplenic lesions seen. ADRENALS: No adrenal nodules identified. No evidence for thickening. KIDNEYS: No evidence for renal mass. No nephrolithiasis. No hydronephrosis. BOWEL: Previous cholecystectomy change. No evidence of bowel obstruction. No inflammatory process. Lymph nodes: No evidence for adenopathy greater than 1 cm. Abdominal aorta: Atheromatous changes seen. No evidence for aneurysm. Genital organs: No significant abnormality. Other: Fat-containing umbilical hernia which extends to the left of midline measures 4.3 x 1.4 cm. IMPRESSION: Fat-containing umbilical hernia which extends to the left of midline measures 4.3 x 1.4 cm. [facility], , 02/09/2025 12:17 PM
[2025-02-09] MEDS: ORPHENADRINE 30 MG/ML 2 ML VIAL IVP STA (12:43)
[2025-02-09] MEDS: LIDOCAINE 4% PATCH TOPICAL ONE (12:44)
[2025-02-09] MEDS: HYDROmorphone 1 MG/ML 1 ML SYRINGE IVP STA (12:44)
[2025-02-09 13:55] VITALS: BP 129/79; PULSE 66; RESP 20; TEMP 98.3
== END 2025-02-09 13:55 | disposition home or self-care (01) ==
LOC: EC 10:01
DX: M54.50 Low back pain, unspecified (principal); K42.9 Umbilical hernia without obstruction or gangrene; F17.200 Nicotine dependence, unspecified, uncomplicated; Z91.030 Bee allergy status; Z91.018 Allergy to other foods
CPT/HCPCS: 36415; 80053; 83605; 83690; 85025; 81001; 74176; 99284; 96374; 96375; 96361; J2270; J2360; J1171; J1885